=== PATIENT | male | born 1970 | race Caucasian/White ===

== ENCOUNTER 2017-02-04 21:52 | Emergency (ER) | payer OTHER ==
[2017-02-04] MEDS ORDERED: Ondansetron INJ* 2 MG/ML VIAL IV ONE (23:26)
[2017-02-04] MEDS ORDERED: diPHENhydraMINE IV* 50 MG/ML 1 ml VIAL (BENADRYL) IV ONE (23:26)
[2017-02-04] MEDS ORDERED: Ketorolac INJ* 30 MG/ML 1 ML VIAL IV ONE (23:26)
[2017-02-04] MEDS ORDERED: NS 0.9% 1000 ML* 2,000 ML IV ONE (23:26)
[2017-02-05] MEDS ORDERED: HYDROmorphone* 1 MG/ML 1 ML SYR IV ONE (00:55)
--- NOTE | 2017-02-05 02:02 | ED ---
Shazia Magana Alok, scribed for Cande Schrader MD on 02/04/17 at 2353 . Headache - HPI Summary HPI Summary: 46M presents to the ED with a migraine starting 4 days ago. Pt has a h/o migraines though they typically do not last this long. Pt states that he has come to the ED once or twice a year for migraines of this severity. Pt notes slight aura today. Pt notes vomiting 3 times today. Pt denies weakness on either side. - History Of Current Complaint Chief Complaint: EDHeadache Stated Complaint: MIGRAINE Time Seen by Provider: 02/04/17 22:45 Hx Obtained From: Patient Onset/Duration: Started days ago, Still Present Initially Headache Was: Moderate Currently Pain Is: Moderate Character: Migraine Aggravating Factor: Nothing Allevating Factors: Nothing Associated Signs And Symptoms: Vomiting - Allergies/Home Medications Allergies/Adverse Reactions: Allergies Allergy/AdvReac Type Severity Reaction Status Date / Time No Known Allergies Allergy Verified 02/04/17 22:10 PMH/Surg Hx/FS Hx/Imm Hx Infectious Disease History: Denies: Traveled Outside the [place] in Last 30 Days - Family History Known Family History: Positive: Other - No - Migraine - Social History Occupation: Employed Full-time Review of Systems Negative: Fever Positive: Vomiting Positive: Headache. Negative: Weakness All Other Systems Reviewed And Are Negative: Yes Physical Exam Triage Information Reviewed: Yes Vital Signs On Initial Exam: Initial Vitals Temp Pulse Resp BP Pulse Ox 99.0 F 62 16 129/60 100 02/04/17 22:05 02/04/17 22:05 02/04/17 22:05 02/04/17 22:05 02/04/17 22:05 Vital Signs Reviewed: Yes Appearance: Positive: Well-Appearing, No Pain Distress Skin: Positive: Warm, Skin Color Reflects Adequate Perfusion, Dry Eyes: Positive: EOMI, GIOVANNA ENT: Positive: Pharynx normal, TMs normal Neck: Positive: Supple, Nontender Respiratory/Lung Sounds: Positive: Clear to Auscultation, Breath Sounds Present. Negative: Rales, Rhonchi, Wheezes Cardiovascular: Positive: RRR, Other - no gallop. Negative: Murmur, Rub Abdomen Description: Positive: Nontender, Soft, Other: - no rebound. Negative: Distended, Guarding Bowel Sounds: Positive: Present Musculoskeletal: Positive: Strength/ROM Intact. Negative: Edema Left, Edema Right Neurological: Positive: Sensory/Motor Intact, Alert, Oriented to Person Place, Time, CN Intact II-III Psychiatric: Positive: Affect/Mood Appropriate Diagnostics - Vital Signs Vital Signs Temp Pulse Resp BP Pulse Ox 02/04/17 22:05 99.0 F 62 16 129/60 100 - Laboratory Lab Statement: Any lab studies that have been ordered have been reviewed, and results considered in the medical decision making process. Headache Course/Dx - Course Course Of Treatment: 46 yo with a migraine visiting the area for work, pain better now ok to go home - Diagnoses Provider Diagnoses: Migraine Discharge - Discharge Plan Condition: Stable Disposition: HOME Patient Education Materials: Migraine Headache (ED) Referrals: No Primary Care Phys,NOPCP [Primary Care Provider] - The documentation as recorded by the Shazia freitas Alok accurately reflects the service I personally performed and the decisions made by Raciel hills Justine, MD.
[2017-02-05 02:28] VITALS: BP 126/75
== END 2017-02-05 02:27 | disposition home or self-care (01) ==
LOC: ED 21:52
DX: G43.909 Migraine, unspecified, not intractable, without status migrainosus (principal); R11.10 Vomiting, unspecified; R51 Headache
CPT/HCPCS: 96374; 96375; 99283; J1170; J1200; J1885; J2405